=== PATIENT | female | born 1980 | race Caucasian/White ===

== ENCOUNTER 2019-08-26 15:14 | Outpatient (CLI) | payer BC, SELFPAY ==
--- NOTE | ~2019-08-26 | MM_ITS ---
EXAMINATION: MM screening nilesh BI w [facility] HISTORY: Screening mammogram TECHNIQUE: Craniocaudal and mediolateral oblique 3-D tomosynthesis images were obtained and synthetic 2-D images were generated. CAD analysis was submitted and interpreted. COMPARISON: 06/05/2017 BREAST PARENCHYMAL COMPOSITION: There are scattered areas of fibroglandular density. FINDINGS: There is no evidence of suspicious mass, calcification, or architectural distortion to sugg est malignancy in either breast. There has been no suspicious interval change. IMPRESSION: 1. No mammographic evidence of malignancy. 2. Recommend routine screening mammography in one year. BI-RADS Category 1: Negative Reviewed, dictated and finalized at location A. NFIELD REDEVELOPMENT SPECIALIST
== END 2019-08-26 15:15 | disposition home or self-care (01) ==
LOC: ANHIMG 15:18
PROVIDERS: Visit Provider Obstetrics & Gynecology
DX: Z12.31 Encounter for screening mammogram for malignant neoplasm of breast (principal)
CPT/HCPCS: 77063; 77067

== ENCOUNTER 2020-09-10 10:02 | Outpatient (CLI) | payer BC, SELFPAY ==
--- NOTE | ~2020-09-10 | MM_ITS ---
EXAMINATION: MM screening nilesh BI w [facility] HISTORY: Screening TECHNIQUE: Craniocaudal and mediolateral oblique 3-D tomosynthesis images were obtained and synthetic 2-D images were generated. CAD analysis was submitted and interpreted. COMPARISON: Comparison to multiple prior studies sequentially, with oldest reviewed study dated 05/27. BREAST PARENCHYMAL COMPOSITION: There are scattered areas of fibroglandular density. FINDINGS: There is no evidence of suspicious mass, calcification, or architectural distortion to sugg est malignancy in either breast. There has been no suspicious interval change. IMPRESSION: 1. No mammographic evidence of malignancy. 2. Recommend routine screening mammography in one year. BI-RADS Category 1: Negative Reviewed, dictated and finalized at location A. 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
== END 2020-09-10 10:03 | disposition home or self-care (01) ==
LOC: ANHIMG 10:05
PROVIDERS: PCP Family Medicine; Visit Provider Obstetrics & Gynecology
DX: Z12.31 Encounter for screening mammogram for malignant neoplasm of breast (principal)
CPT/HCPCS: 77063; 77067

== ENCOUNTER 2021-09-12 08:32 | Outpatient (CLI) | payer BC, SELFPAY ==
--- NOTE | ~2021-09-12 | MM_ITS ---
EXAMINATION: MM screening nilesh BI w [facility] HISTORY: Screening TECHNIQUE: Craniocaudal and mediolateral oblique 3-D tomosynthesis images were obtained and synthetic 2-D images were generated. CAD analysis was submitted and interpreted. COMPARISON: Comparison to multiple prior studies sequentially, with oldest reviewed study dated 05/27. BREAST PARENCHYMAL COMPOSITION: There are scattered areas of fibroglandular density. FINDINGS: There is no evidence of suspicious mass, calcification, or architectural distortion to sugg est malignancy in either breast. There has been no suspicious interval change. IMPRESSION: 1. No mammographic evidence of malignancy. 2. Recommend routine screening mammography in one year. BI-RADS Category 1: Negative Reviewed, dictated and finalized at location A. OR PAINTER
== END 2021-09-12 08:33 | disposition home or self-care (01) ==
LOC: ANHIMG 08:36
PROVIDERS: PCP Family Medicine; Visit Provider Obstetrics & Gynecology
DX: Z12.31 Encounter for screening mammogram for malignant neoplasm of breast (principal)
CPT/HCPCS: 77063; 77067

== ENCOUNTER 2022-11-20 07:25 | Outpatient (CLI) | payer BC, SELFPAY ==
--- NOTE | ~2022-11-20 | MM_ITS ---
EXAMINATION: MM screening nilesh BI w [facility] HISTORY: Screening mammogram TECHNIQUE: Craniocaudal and mediolateral oblique 3-D tomosynthesis images were obtained and synthetic 2-D images were generated. CAD analysis was submitted and interpreted. COMPARISON: September 12, 2021, September 10, 2020, August 26, 2019 bilateral screening mammogram exam inations BREAST PARENCHYMAL COMPOSITION: There are scattered areas of fibroglandular density. FINDINGS: There is no evidence of suspicious mass, calcification, or architectural distortion to sugg est malignancy in either breast. There has been no suspicious interval change. IMPRESSION: 1. No mammographic evidence of malignancy. 2. Recommend routine screening mammography in one year. BI-RADS Category 1: Negative Reviewed, dictated and finalized at location A.
== END 2022-11-20 07:26 | disposition home or self-care (01) ==
LOC: ANHIMG 07:26
PROVIDERS: PCP Family Medicine; Visit Provider Obstetrics & Gynecology
DX: Z12.31 Encounter for screening mammogram for malignant neoplasm of breast (principal)
CPT/HCPCS: 77063; 77067

== ENCOUNTER 2023-12-07 14:49 | Outpatient (CLI) | payer BC, SELFPAY ==
--- NOTE | ~2023-12-07 | MM_ITS ---
EXAMINATION: MM screening nilesh BI w [facility] HISTORY: Screening mammogram TECHNIQUE: Craniocaudal and mediolateral oblique 3-D tomosynthesis images were obtained and synthetic 2-D images were generated. CAD analysis was submitted and interpreted. COMPARISON: November 20, 2022, September 12, 2021 bilateral screening mammogram examinations BREAST PARENCHYMAL COMPOSITION: There are scattered areas of fibroglandular density. FINDINGS: There is no evidence of suspicious mass, calcification, or architectural distortion to sugg est malignancy in either breast. There has been no suspicious interval change. IMPRESSION: 1. No mammographic evidence of malignancy. 2. Recommend routine screening mammography in one year. BI-RADS Category 1: Negative Reviewed, dictated and finalized at location A.
== END 2023-12-07 14:50 | disposition home or self-care (01) ==
LOC: ANHIMG 14:53
PROVIDERS: PCP Family Medicine; Visit Provider Obstetrics & Gynecology
DX: Z12.31 Encounter for screening mammogram for malignant neoplasm of breast (principal)
CPT/HCPCS: 77063; 77067

== ENCOUNTER 2025-02-07 15:43 | Outpatient (CLI) | payer BC, SELFPAY ==
--- NOTE | ~2025-02-07 | MM_ITS ---
EXAMINATION: MM screening nilesh BI w [facility] HISTORY: Screening TECHNIQUE: Craniocaudal and mediolateral oblique 3-D tomosynthesis images were obtained and synthetic 2-D images were generated. CAD analysis was submitted and interpreted. COMPARISON: Comparison to multiple prior studies sequentially, with oldest reviewed study dated 05/27. BREAST PARENCHYMAL COMPOSITION: Not dense: There are scattered areas of fibroglandular density. FINDINGS: There is no evidence of suspicious mass, calcification, or architectural distortion to sugg est malignancy in either breast. There has been no suspicious interval change. IMPRESSION: 1. No mammographic evidence of malignancy. 2. Recommend routine screening mammography in one year. BI-RADS Category 1: Negative Reviewed, dictated and finalized at location B.
--- OUTSIDE RECORDS SUMMARY | 2025-02-07 16:15 | XMS_ITS | Clinical Summary ---
Author Organization [facility] Address [address] [address] Care Team Providers Care Automatic Spooler Operator Name Role Phone Unavailable Primary Care Provider Unavailabl e Source Comments [facility],non-owned Affiliates and Associated Physician Practices is amultiple site organization consisting of ambulatory clinics and hospital sitesin [place], [place], [place] and [place]. This disclosure is being madepursuant to the Care Everywhere program and may not contain all information available regarding this patient. Last updated 18.[facility] Allergies Active Allergy Reactions Criticality Noted Date Comments Butorphanol Tartrate Anxiety 09/10/2009 Medications * Be aware that medications may not be up to date on this document. Alwaysverify current medications with the patient. ibuprofen (MOTRIN) 600 MG tablet Take 1 Tab by mouth every 6 hours as needed for Pain. 30 1 09/26/2009 Active docusate sodium (COLACE) 100 MG capsule Take 1 Cap by mouth 2 times daily. 60 1 09/26/2009 Active oxycodone-acetam inophen (PERCOCET) 5-325 MG tablet Take 1-2 Tabs by mouth every 4 hours as needed for Pain. 40 0 09/26/2009 Active labetalol (NORMODYNE; TRANDATE) 200 MG tablet Take 1 Tab by mouth every 8 hours. 180 3 09/26/2009 Active Multivit-Iron TABS Take 1 Tab by mouth daily. 60 0 09/26/2009 Active Active Problems Problem Noted Date Diagnosed Date Amniotic fluid index decreased 09/20/2009 Overview (09/20/2009): 5.2 on 09/20 High-risk supervision 09/10/2009 Overview (09/10/2009): labs requested from Dr. Alejandra Dia MD note: B+/I/-/- History of section 09/10/2009 Overview (09/10/2009): C/S x2 in 2002 (failed IOL for HELLP), and repeat in 2004 History of maternal HELLP syndrome, currently pr egnant 09/10/2009 Overview (09/10/2009): HELLP with G1. Delivered at 35w Hypertension in , preeclampsia, antepar nae 09/10/2009 Overview (09/10/2009): Questionable chronic hypertension (per pt is borderline hypertensive) 24 hr urine 1037mg protein Family History Medical History Relation Name Comments Arthritis - Osteo Maternal Grandfather Cancer Maternal Grandfather prostat e Arthritis - Osteo Maternal Grandmother Hypertension Maternal Grandmother Hypertension Mother Migraine Mother Diabetes Paternal Grandfather Hypertension Paternal Grandfather Hypertension Paternal Grandmother Relation Name Status Comments Maternal Grandfather Maternal Grandmother Mother Paternal Grandfather Paternal Grandmother Social History Tobacco Use Types Packs/Day Years Used Date Smoking Tobacco: Never Alcohol Use Standard Drinks/Week Comments No 0 (1 standard drink = 0.6 oz pur e alcohol) Comments No Sex and Gender Information Value Date Recorded Sex Assigned at Not on file Legal Sex Female 6:26 AM BOULEVARD GLASSWARE REPLACER Gender Identity Not on file Sexual Orientation Not on file 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 on file Not on file Not on file Last Filed Vital Signs Vital Sign Reading Time Taken Comments Blood Pressure 138/84 09/26/2009 1:50 PM BOULEVARD GLASSWARE REPLACER Pulse 64 09/26/2009 7:05 AM BOULEVARD GLASSWARE REPLACER Temperature 36.1 C (97 F) 09/26/2009 7:05 AM BOULEVARD GLASSWARE REPLACER Respiratory Rate 18 09/25/2009 4:20 PM BOULEVARD GLASSWARE REPLACER Oxygen Saturation 99% 09/24/2009 3:25 AM BOULEVARD GLASSWARE REPLACER Inhaled Oxygen Concentration 21% 09/23/2009 1 1:39 PM BOULEVARD GLASSWARE REPLACER Weight 107 kg (235 lb 14.4 oz) 09/23/2009 11:20 AM BOULEVARD GLASSWARE REPLACER Height 167.6 cm (5' 6) 09/10/2009 10:25 AM BOULEVARD GLASSWARE REPLACER Body Mass Index 38.08 09/10/2009 10:25 AM BOULEVARD GLASSWARE REPLACER Plan of Treatment Health Maintenance Due Date Last Done Comments LIPID TESTING 1980 MAMMOGRAM 1980 HIV SCREENING 1995 HEPATITIS C SCREENING 04/14/1998 DTAP/TDAP/TD VACCINES (1 - Tdap) 1999 HEPATITIS B VACCINE (1 of 3 - 19+ 3-dose series) 1999 HPV VACCINE (1 - 3-dose SCDM series) 2007 COVID-19 VACCINE (1 - 2023-2 5 season) 2024 DEPRESSION SCREENING 07/27/2024 INFLUENZA VACCINE (#1) 2025 ZOSTER VACCINE (1 of 2) 2030 HIB VACCINE Aged Out No longer eligi ble based on patient's age to complete this topic MENINGOCOCCAL (Group B) VACC INE SHARED DECISION-MAKING Aged Out No longer eligibl e based on patient's age to complete this topic MENINGOCOCCAL GROUPS A/C/Y/W VACCINE Aged Out No longer eligible b ased on patient's age to complete this topic PNEUMOCOCCAL VACCINE Aged Out No long er eligible based on patient's age to complete this topic Advance Directives Documents on File Type Date Recorded Patient Plastic Duplicator Expl anation Adv Directive/Living Will/POA 09/27/2009 7:20 AM * Full Code (Latest Code Status on File) Date Activated Date Inactivated Comments 09/25/2009 10:20 AM 09/27/2009 2:30 AM * Full Code Date Activated Date Inactivated Comments 09/23/2009 9:35 PM 09/24/2009 4:30 AM * Full Code Date Activated Date Inactivated Comments 09/10/2009 11:11 AM 09/23/2009 9:35 PM
--- OUTSIDE RECORDS SUMMARY | 2025-02-07 16:15 | XMS_ITS | Encounter Summary ---
Author Organization [facility] Address [address] [place] [address] Care Team Providers Care Children'[address] Court Magistrate Name Role Phone Storm Manfsield MD Primary Care Provider [phone]- [phone] Reason for Visit * Reason Onset Date Comments Blood Pressure 01/20/2025 Encounter Details Date Type Department Care Team (Late st Contact Info) Description 01/20/2025 [facility]phone [facility] [address] [place], [place] [id number] Diallo Lopez MD [facility] [address] [place], [place] [id number] Blood Pressure Social History Tobacco Use Types Packs/Day Years Used Date Smoking Tobacco: Never Smokeless Tobacco: Never Alcohol Use Standard Drinks/Week Comments Not Currently 0 (1 standard drink = 0.6 oz pur e alcohol) Comments Unknown Sex and Gender Information Value Date Recorded Sex Assigned at Female 11/03/2024 7:59 AM CDT Legal Sex Female 5:43 PM CDT Gender Identity Not on file Sexual Orientation Not on file documented as of this encounter Progress Notes * Marjorie Nicholas RN - 02/07/2025 9:56 AM CDTAddended by: MARJORIE NICHOLAS on: 02/07/2025 09:56 AM Modules accepted: Orders * Marjorie Nicholas RN - 02/07/2025 9:53 AM CDT Patient informed she can likely tolerate coreg 25mg BID. Increase to this for convenience of tablets/dosing and further improvement with BP. Call with any adverse symptoms. Patient voiced understanding. Prescription sent to preferred pharmacy. No further questions at this time. * Marjorie Nicholas RN - 02/07/2025 9:20 AM CDT I left a VM to call the office back. * Salvador Lazo NP - 02/07/2025 9:00 AM CDT She can likely tolerated coreg 25 mg BID Increase to this for convenience of tablets/dosing and further improvement with BP Call with any adverse symptoms * Marjorie Nicholas RN - 02/03/2025 3:55 PM CDT No reported symptoms. Patient increased coreg to 18.75 mg BID. Patient does not have many readings for last week as she was out of town. 01/20/25 143/71 83 01/21/25 No reading 01/22/25 136/68 80 01/23/25 142/68 73 01/24/25 143/69 72 01/25/25 No reading 01/26/25 128/78 No HR 01/27/25 No reading 01/28/25 No reading 01/29/25 No reading 01/30/25 No reading 01/31/25 No reading 02/01/25 142/68 78 02/02/25 No reading 02/03/25 130/65 74 * Marjorie Nicholas RN - 02/03/2025 9:53 AM CDT I left a detailed VM requesting the last 7 days of BP readings. * Marjorie Nicholas RN - 01/20/2025 2:14 PM CDTAddended by: MARJORIE NICHOLAS on: 01/20/2025 02:14 PM Modules accepted: Orders * Marjorie Nicholas RN - 01/20/2025 2:10 PM CDT Patient informed Dr. Lopez recommends increasing coreg to 18.75 mg BID. Report back in 1-2 weeks with BP readings. Patient voiced understanding. Prescription sent to preferred pharmacy. No further questions at this time. * Marjoire Nicholas RN - 01/20/2025 11:16 AM CDT Patient calling with BP readings since last office visit. Patient reports having WELLS off and on whengoing outside. Patient is trying to stay hydrated. She is indoors most of the time. Patient is currently taking amlodipine 10mg QD, carvedilol 12.5mg BID and Losartan 100mg QD. 01/01/25 131/67 84 01/02/25 No reading 01/03/25 136/76 79 01/04/25 144/66 71 01/05/25 131/67 82 01/06/25 No reading 01/07/25 148/74 85 01/08/25 136/74 79 01/09/25 No reading 01/10/25 134/68 72 01/11/25 No reading 01/12/25 No reading 01/13/25 129/69 76 01/14/25 148/72 No HR 01/15/25 No reading 01/16/25 No reading 01/17/25 146/68 73 01/18/25 No reading 01/19/25 140/68 74 documented in this encounter Plan of Treatment Upcoming Encounters Date Type Department Care Team (Late st Contact Info) Description 08/10/2025 11:00 AM DISTRIBUTION OPERATION SUPERVISOR Office Visit [facility], [address] [place] [address] Diallo Lopez MD [facility] [address] [place] [address] documented as of this encounter Visit Diagnoses Not on filedocumented in this encounter Care Teams Children'[address] Magistrate Relationship Specialty Start Date End Date Storm Mansfield MD [address] [facility] [address] [place] [address] PCP - General FAMILY PRACTICE 07/27/23 documented as of this encounter
--- OUTSIDE RECORDS SUMMARY | 2025-02-07 16:15 | XMS_ITS | Encounter Summary ---
Author Organization [facility] Address [address] [place] [address] Care Team Providers Care Manager Financial Services Name Role Phone Mik Mcmanus MD Primary Care Provider +1 [phone] Storm Mansfield MD Primary Care Provider +1- [phone] Encounter Details Date Type Department Care Team (Late Contact Info) Description 03/21/2022 [facility] [address] [id number] Johnnie Pearson MA Social History Tobacco Use Types Packs/Day Years [...] on file Sexual Orientation Not on file COVID-19 Exposure Response Date Recorded In the last 10 days, have yo u been in contact with someone who was confirmed or suspected to have Coronavirus/COVID-19? No / Unsure 03/20/2022 12:52 PM CDT documented as of this encounter Plan of Treatment Upcoming Encounters Date Type Department Care Team (Late Contact Info) Description 08/10/2025 11:00 AM CAR RACER Office Visit [facility], [address] [place] [address] Diallo Lopez MD [facility] [address] [place], [place] [phone] documented as of this encounter Procedures Procedure Name Priority Date/Time Associated Diagnosis Comments COMPREHENSIVE METABOLIC PANEL Routine 12/17/2023 LIPID PANEL Routine 12/17/2023 CBC, MANUAL DIFF Routine 12/17/2023 THYROID STIM HORMONE TSH Routine 12/17/2023 BASIC METABOLIC PANEL Routine 04/10/2022 COMPREHENSIVE METABOLIC PANEL Routine 05/15/2021 LIPID PANEL Routine 05/15/2021 CBC, MANUAL DIFF Routine 05/15/2021 documented in this encounter Results * COMPREHENSIVE METABOLIC PANEL (12/17/2023) Pathologist [facility] SODIUM S/P/B 136 GLUCOSE 88 mg/dL AST 25 BUN 12 CREATININE S/P/B 0.79 0.5 - 1.0 CALCIUM S/P/B 8.9 POTASSIUM S/P/B 4.1 CHLORIDE S/P/B 101 ALT 32 GFR ESTIMATE 95 us Default History Genericprovider LABORATORY Final Result * LIPID PANEL (12/17/2023) Pathologist [facility] CHOLESTEROL 139 TRIGLYCERIDES 135 HDL 46 LDL (CALCULATED) 69 us Default History Genericprovider LABORATORY Final Result * CBC, MANUAL DIFF (12/17/2023) Pathologist [facility] WBC 7.3 HGB 13.8 HCT 42.2 PLT 278 us Default History Genericprovider LABORATORY Final Result * THYROID STIM HORMONE TSH (12/17/2023) Pathologist [facility] TSH 2.760 us Default History Genericprovider LABORATORY Final Result * (ABNORMAL) BASIC METABOLIC PANEL (04/10/2022) [facility] SODIUM S/P/B 138 POTASSIUM S/P/B 4.2 CO2 25 CHLORIDE S/P/B 101 GLUCOSE 76 mg/dL CALCIUM S/P/B 9.2 BUN 12 CREATININE S/P/B 0.83 0.5 - 1.0 EGFR NON-AFR. AMER. 91(A) <=90 04/10/2022 us Doc [facility] Abstract LABORATORY Final Result * COMPREHENSIVE METABOLIC PANEL (05/15/2021) [facility] SODIUM S/P/B 139 GLUCOSE 89 mg/dL AST 25 BUN 11 CREATININE S/P/B 0.92 0.5 - 1.0 CALCIUM S/P/B 8.9 POTASSIUM S/P/B 4.3 CHLORIDE S/P/B 103 ALT 19 GFR ESTIMATE 78 us Doc [facility] Abstract LABORATORY Final Result * LIPID PANEL (05/15/2021) [facility] CHOLESTEROL 184 TRIGLYCERIDES 203 HDL 42 LDL (CALCULATED) 107 us Doc [facility] LABORATORY Final Result * CBC, MANUAL DIFF (05/15/2021) [facility] WBC 5.2 HGB 13.1 HCT 38.9 PLT 259 us Doc [facility] LABORATORY Final Result documented in this encounter Visit Diagnoses Not on filedocumented in this encounter Care Teams Manager Financial Services Relationship Specialty Start Date End Date Mik Mcmanus MD [address] [facility] [address] [place], [place] [phone] PCP - General 02/02/15 07/26/23 Storm Mansfield MD [address] [facility] [address] [place] [address] PCP - General FAMILY PRACTICE 07/27/23 documented as of this encounter
--- OUTSIDE RECORDS SUMMARY | 2025-02-07 16:16 | XMS_ITS | Clinical Summary ---
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 REPEAT EVERY MONTH. 11/30/19 22 Active Glycerin (OASIS TEARS PF OP) Active Eyelid Cleansers (ACUICYN) Solution Active [place]-3 Fatty Acids (FISH OIL ADULT GUMMIES OR) Take by mouth 2 (two) times daily. Active MIEBO 1.338 GM/ML Solution 05/22/20 23 Active olopatadine (PATADAY) 0.7 % ophthalmic solution 11/01/19 23 Active losartan (COZAAR) 50 MG tablet take 2 tablets by mouth daily. 180 tablet 2 03/21/20 24 Active AZASITE 1 % ophthalmic solution 12/16/19 25 Active amLODIPine (NORVASC) 10 MG tablet TAKE 1 TABLET BY MOUTH EVERY DAY 90 tablet 1 02/01/20 25 Active carvedilol (COREG) 25 MG tablet Take 1 tablet (25 mg total) by mouth 2 (two) times daily. New dose 60 tablet 2 02/08/20 25 Active amLODIPine (NORVASC) 10 MG tablet take 1 tablet by mouth every day 90 tablet 1 04/15/20 24 025 Discontinued carvedilol (COREG) 12.5 MG tablet Take 1 tablet (12.5 mg total) by mouth 2 (two) times daily. 180 tablet 3 12/31/19 25 025 Discontinued(Re order) carvedilol (COREG) 12.5 MG tablet Take 1.5 tablets (18.75 mg total) by mouth 2 (two) times daily. New dose 90 tablet 2 01/21/20 25 025 Discontinued(Re order) Encounters Date Type Department Care Team Description [facility] [address] [address] Diallo Lopez MD Blood Pressure 12/30/2024 9:45 AM CDT [facility] [address] [address] Diallo Lopez MD Palpitations; Hypertension; Follow Up (Stress echo follow up) 12/30/2024 Travel 11/09/2024 10:14 AM CDT - 11/09/2024 11:59 PM CDT Hospital Encounter [facility] Non Invasive [place] [address] Diallo Lopez MD Discharge Disposition: Home or Self Care (Routine Discharge) 11/09/2024 Results [facility] [address] [address] Marjorie Brady, RN USE STRESS ECHO W JAVAN Dhillon MD 11/09/2024 Travel from Last 3 Months Immunizations Immunization Administration Dates Next Due Influenza Adult (Generic) 05/30/2020,05/02/2019, 05/12/2018 PFIZER COVID-19 (ORIGINAL FO RMULATION, PURPLE CAP) mRNA, LNP-S, PF, 30 MCG/0.3 ML DOSE 11/20/2020,10/31/2020 Family History Medical History Relation Comments Heart Attack Father Hypertension Father Atrial fibrillation Maternal Grandfather Stent Cardiac Maternal Grandfather Stroke Maternal Grandfather Hypertension Mother pvc Mother 5 Bi-pass Paternal Grandfather Hypertension Sister Relation Status Comments Father (Age 63) Maternal Grandfather Alive Maternal Grandmother (Age 73) Mother Alive Paternal Grandfather (Age 89) Paternal Grandmother Alive Sister Alive Social History Tobacco Use Types Packs/Day Years [...] on file Sexual Orientation Not on file Last Filed Vital Signs Vital Sign Reading Time Taken Comments Blood Pressure 140/88 12/30/2024 9:40 AM CDT Pulse 82 12/30/2024 9:40 AM CDT Temperature - - Respiratory Rate - - Oxygen Saturation 100% 12/30/2024 9:40 AM CDT Inhaled Oxygen Concentration - - Weight 123.4 kg (272 lb) 12/30/2024 9:40 AM CDT Height 167.6 cm (5' 6) 12/30/2024 9:40 AM CDT Body Mass Index 43.9 12/30/2024 9:40 AM CDT Plan of Treatment Upcoming Encounters Date Type Department Care Team (Late st Contact Info) Description 08/10/2025 11:00 AM 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 Office Visit [facility] [address] [place], [place] [id number] Diallo Lopez MD [facility] [address] [place], [place] [id number] Health Maintenance Due Date Last Done Comments Annual Physical 1983 Hepatitis C 1998 DTaP, Tdap and Td Vaccines ( 1 - Tdap) 1999 Hepatitis B Vaccines (1 of 3 - 19+ 3-dose series) 1999 Mammogram Screening 2020 COVID-19 Vaccine (3 - 2023-2 5 season) 2024 11/20/2020, 10/31/2020 HPV Vaccines Aged Out No longer eligi ble based on patient's age to complete this topic Meningococcal B Vaccine Aged Out No l onger eligible based on patient's age to complete this topic Meningococcal Vaccine Aged Out No woody abdelrahman eligible based on patient's age to complete this topic Pneumococcal Vaccine: Pediatrics (0 to 5 Years) and At-Risk Patients (6 to 49 Years) Aged Out No longer eligible b ased on patient's age to complete this topic RSV Immunizations Under 20 Months Aged Out No longer eligible b ased on patient's age to complete this topic Procedures Procedure Name Priority Date/Time Associated Diagnosis Comments USE STRESS ECHO Alejo Dhillon MD Routine 11/09/2024 11:18 AM CDT Chest pain of unknown etiology Essential (primary) hypertension CARDIOLOGY STRESS TEST ONLY, EXERCISE Routine 11/09/2024 10:18 AM CDT Chest pain of unknown etiology Essential (primary) hypertension from Last 3 Months Results * USE STRESS ECHO Alejo Dhillon MD (11/09/2024 11:18 AM CDT) Anatomical Region Laterality Modality Cardiac Echocardiogram 11/09/2024 10:4 5 AM CDT Narrative 11/09/2024 1:06 PM CDT Stress Echocardiography Report Pat.Name: YESSY HASTINGS Pat.ID: [id number] .Date: 11/09/2024 Refer.: [id number], Jessica rosario ewdprov ewdprov Exam Time: 10:45:00 AM Study Type:STRESS ECHO DOPPLER COLOR FLOW Height: 66 in Weight: 270 lb BSA: 2.27 m2 Age: 9 1980,44Y Sex: F BP: 145/83 HR: 91 bpm Sonogrphr: Ayah Bello Pat. Stat.:Outpatient Reason for Study:Chest pain-atypical Procedures: 2D, Doppler, Color Flow, Definity was used to enhance endocardial definition. Exercise Stress Echo, The study quality is technically good. Race: W ++++++++++++++++++++++++++++++++++++ SUMMARY: ++++++++++++++++++++++++++++++++++++ 1. Clinically negative. 2. Electrocardiographically negative treadmill test for ischemia. 3. Adequate exercise capacity. 4. Echocardiographically negative for ischemia. 5. Mendes Treadmill Score is 6 , which indicates low risk. 6. Blood pressure response was normal. 7. The quality of this study is good . 8. Stress echocardiogram shows overall low risk for a cardiac event. ++++++++++++++++++++++++++++++++++++ FINDINGS: ++++++++++++++++++++++++++++++++++++ Resting Function and Wall Motion LV: LV function is normal. Overall wall motion is normal. Estimated EF is 50-55%. RV: RV function is normal. Stress Function and Wall Motion LV: LV function is normal. Overall stress wall motion is normal. Estimated EF is 60-65%. RV: RV function is normal. ++++++++++++++++++++++++++++++++++++ STRESS: ++++++++++++++++++++++++++++++++++++ Baseline Vital Signs: Baseline Rhythm: Normal sinus rhythm HR: 91 bmp Rest BP: 145/83 Exercise Stress Echo Protocol: Jairo Duration: 06:20 min:sec Max. Workload (METS): 7.7 Stress Test Results: Max HR: 161 bmp Target HR: 176 bmp % Target: 91 % Max BP: 160/88 Max RPP: 97659 Contrast: Definity 2 ml O2 sat: 100 % Symptoms and Complications: Reason for Stopping Test: Shortness of breath Stress Induced Symptoms: Shortness of breath, Leg Fatigue Other: Normal blood pressure response to exercise. ECG Findings: No ischemic S-T changes occurred with stress, Sinus tachycardia <Electronic Signature> 11/09/2024 01:06 PM Diallo Lopez M.D. Procedure Note Diallo Lopez MD - 11/09/2024 Stress Echocardiography Report Pat.Name: YESSY HASTINGS Pat.ID: [id number] .Date: 11/09/2024 Refer.MD: [id number], Jessica rosario ewdprov ewdprov Exam Time: 10:45:00 AM Study Type:STRESS ECHO DOPPLER COLOR FLOW Height: 66 in Weight: 270 lb BSA: 2.27 m2 Age: 9 1980,44Y Sex: F BP: 145/83 HR: 91 bpm Sonogrphr: Ayah Bello. Stat.:Outpatient Reason for Study:Chest pain-atypical Procedures: 2D, Doppler, Color Flow, Definity was used to enhance endocardial definition. Exercise Stress Echo, The study quality is technically good. Race: W ++++++++++++++++++++++++++++++++++++ SUMMARY: ++++++++++++++++++++++++++++++++++++ 1. Clinically negative. 2. Electrocardiographically negative treadmill test for ischemia. 3. Adequate exercise capacity. 4. Echocardiographically negative for ischemia. 5. Mendes Treadmill Score is 6 , which indicates low risk. 6. Blood pressure response was normal. 7. The quality of this study is good . 8. Stress echocardiogram shows overall low risk for a cardiac event. ++++++++++++++++++++++++++++++++++++ FINDINGS: ++++++++++++++++++++++++++++++++++++ Resting Function and Wall Motion LV: LV function is normal. Overall wall motion is normal. Estimated EF is 50-55%. RV: RV function is normal. Stress Function and Wall Motion LV: LV function is normal. Overall stress wall motion is normal. Estimated EF is 60-65%. RV: RV function is normal. ++++++++++++++++++++++++++++++++++++ STRESS: ++++++++++++++++++++++++++++++++++++ Baseline Vital Signs: Baseline Rhythm: Normal sinus rhythm HR: 91 bmp Rest BP: 145/83 Exercise Stress Echo Protocol: Jairo Duration: 06:20 min:sec Max. Workload (METS): 7.7 Stress Test Results: Max HR: 161 bmp Target HR: 176 bmp % Target: 91 % Max BP: 160/88 Max RPP: 91999 Contrast: Definity 2 ml O2 sat: 100 % Symptoms and Complications: Reason for Stopping Test: Shortness of breath Stress Induced Symptoms: Shortness of breath, Leg Fatigue Other: Normal blood pressure response to exercise. ECG Findings: No ischemic S-T changes occurred with stress, Sinus tachycardia <Electronic Signature> 11/09/2024 01:06 PM Diallo Lopez M.D. Diallo Lopez MD ECHO Final Resul t from Last 3 Months Insurance [id number] Care Teams Wood Cutter Relationship Specialty Start Date End Date Storm Mansfield MD [address] [address] PCP - General FAMILY PRACTICE 07/27/23
--- OUTSIDE RECORDS SUMMARY | 2025-02-07 16:16 | XMS_ITS | Continuity of Care Document ---
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 Name Role Phone Andrew Snyder MD Unavailable Unavailable Allergies, Adverse Reactions, Alerts Substance Reaction Status Criticality lisinopril Active No Information doxycycline Active No Information Medications Medication Instructions Dosage Effective Dates (start - stop) Status Comments Refresh Optive 1 %-0.9 % eye gel drops Instill 1 drop into both eyes 2x a day - Active Pataday Twice Daily Relief 0.1 % eye drops instill 1 drop by ophthalmic route 2 times every day into affected eye(s) at an interval of 6 to 8 hours 1.00 drop - Active Miebo (PF) 100 % eye drops instill 1 drop by ophthalmic route 3 times every day into affected eye(s) 1 drop - Active AzaSite 1 % eye drops instill 1 drop by ophthalmic route every day into affected eye(s) 1.00 drop - Active Avenova 0.01 % topical spray 1 spray once daily OU - Active oasis tears OPHTHALMIC DROPS Instill 1 drop 2x a day - Active warm compresses BUCCAL PAD as needed - Active losartan 50 mg tablet take 1 tablet by oral route every day 50 MG - Active amlodipine 10 mg tablet take 1 tablet by oral route every day 10 MG - Active spironolactone 25 mg tablet take 1 tablet by oral route every day 25 MG May-05-2025 - Active fish oil (unknown strength) 1 tablespoon Not Available - Active Zithromax Z-Stan 250 mg tablet take 2 tablet by oral route every day for 1 day then 1 tablet (250 mg) by oral route once daily for 4 days 500 MG - No Longer Active Xiidra 5 % eye drops in a dropperette instill 1 drop by ophthalmic route 2 times every day into both eyes approximately 12 hours apart 1.00 drop - No Longer Active prednisone 10 mg tablet take 1 tablet by oral route every day 10 MG - No Longer Active Advance Directives Directive Yes / No Effective Date File Name No Information Encounters Encounter Description Practice Location Reason(s) For Visit Diagnoses Date Provider Providers Copied on Encounter [facility], [address] [place] [address], [id number], tel:[phone] Dry eyes (chief complaint) Ocular migraines (chief complaint) Dry eye syndrome, bilateralMeibo freddy gland dysfunction (MGD) of upper and lower lids of both eyesMeibomian gland dysfunction left eye, upper and lower eyelidsSquamou s blepharitis of upper and lower eyelids of both eyesSquamous blepharitis left eye, upper and lower eyelidsAllergi c conjunctivitis of both eyesOcular rosaceaInfesta tion by DemodexMyopia of both eyesKeratoconj unctivitis sicca, not specified as Sjogren's, bilateral 5 Lillian Morales. [address] [place] [address], [address], [place], [address], [place]. tel:[phone] Referring Provider: Andrew Snyder, [address] [place] [address] [address], [place], [address]. tel:[phone] [facility], [address] [place] [address], [place], [place], [id number], [place] tel:[phone] [facility] No Information 5 Lillian Dubon [address] [place] [address], [facility] [address], [place], [address], [place]. tel:[phone] Family History Family Member Type Diagnosis Age At Onset Problem Family history of Cataracts Problem Family history of Glaucoma Payers Payer name Insurance type Covered democrat ID Adalid graham(s) [facility] [id number] Social History Type Description Quantity Date Captured Comments Alcohol Use Details Caffeine Use Details Unknown Tobacco Use Status Current non-smoker Smoking Status Never smoker Non-Smoking Tobacco Use Details : No Details Available : No Details Available Sex Female Chief Complaint And Reason For Visit From encounter dated '11/28/2024 12:15'. Dry eyes (chief complaint). Description: The 44 year old patient presents for evaluation of Dry eyes in the right eye and left eye. It occurs persistently. The condition is moderate. Pt states I do not have Xiidra. I need a PA.TOT 289 OD 292 OS Ocular migraines (chief complaint). Description: Pt states Ocular migraines are occurring 2 months ago. Lasting 20-25 min. I have not had one since. Reason For Referral Reason For Referral No Information History Of Present Illness Encounter Date Complaint History Of Prese nt Illness Dry eyes The 44 year old patient presents for evaluation of Dry eyes in the right eye and left eye. It occurs persistently. The condition is moderate. Pt states I do not have Xiidra. I need a PA.TOT 289 OD 292 OS Ocular migraines Pt states Ocula r migraines are occurring 2 months ago. Lasting 20-25 min. I have not had one since. 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 Impression/Plan Related to Squam ous blepharitis of upper and lower eyelids of both eyes Impression/Plan Related to Aller gic conjunctivitis of both eyes Impression/Plan Related to Ocula r rosacea Impression/Plan Related to Infes tation by Demodex Impression/Plan Related to Myopi a of both eyes Assessments Type Assessment Date assessment Dry eye syndrome, bilateral assessment Meibomian gland dysf unction (MGD) of upper and lower lids of both eyes assessment Meibomian gland dysfunction left eye, upper and lower eyelids assessment Squamous blepharitis of upper an d lower eyelids of both eyes assessment Squamous blepharitis left eye, u pper and lower eyelids assessment Allergic conjunctivitis of both eyes assessment 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 assessment Myopia of both eyes assessment Keratoconjunctivitis sicca, not specified as Sjogren's, bilateral impression Dry eye syndrome, bilateral: H04 .123 impression Meibomian gland dysf unction (MGD) of upper and lower lids of both eyes: H02.88A impression Squamous blepharitis of upper and lower eyelids of both eyes: H01.02A impression Allergic conjunctivitis of both eyes: H10.13 impression 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
== END 2025-02-07 15:44 | disposition home or self-care (01) ==
LOC: ANHIMG 16:13
PROVIDERS: PCP Family Medicine; Visit Provider Obstetrics & Gynecology
DX: Z12.31 Encounter for screening mammogram for malignant neoplasm of breast (principal)
CPT/HCPCS: 77063; 77067